=== PATIENT | female | born 1990 | race Caucasian/White ===

== ENCOUNTER 2020-12-17 13:32 | Emergency (ER) | payer BC ==
[~2020-12-17] VITALS: Ht 160 cm; Wt 63.0 kg
[2020-12-17 13:43] VITALS: BP 131/79
[2020-12-17] MEDS ORDERED: NACL 0.9% 1,000 ML IV ONE (14:25)
[2020-12-17 14:27] LABS: BASOPHILS % (AUTO) 0.1 % (0.0-2.0); EOSINOPHILS % (AUTO) 0.1 % (0.0-4.0); HEMATOCRIT 37.8 % (36-48); HEMOGLOBIN 12.8 g/dL (12.0-16.0); LYMPHOCYTES # (AUTO) 1.6 K/uL (2.5-16.5); LYMPHOCYTES % (AUTO) 18.8 % (20.5-51.1); MEAN CORPUSCULAR HEMOGLOBIN 30 pg (27-31); MEAN CORPUSCULAR HGB CONC 34 g/dL (33-37); MEAN CORPUSCULAR VOLUME 88.7 fL (80-94); MONOCYTES # (AUTO) 0.3 K/uL (0.8-1.0); MONOCYTES % (AUTO) 3.8 % (1.7-9.3); NEUTROPHILS # (AUTO) 6.5 K/uL (1.8-7.7); NEUTROPHILS % (AUTO) 77.2 % (42.2-75.2); PLATELET COUNT (AUTO) 249 K/uL (140-450); RED BLOOD CELL COUNT(AUTO) 4.26 MIL/uL (4.20-5.40); RED CELL DISTRIBUTION WIDTH 13.3 % (11.6-13.7); WHITE BLOOD COUNT (AUTO) 8.4 K/uL (4.8-10.8)
[2020-12-17 14:39] LABS: ANION GAP 16.3 (8-16); CREATININE 0.9 mg/dL (0.6-1.3); POTASSIUM 3.3 mmol/L (3.5-5.1)
[2020-12-17] MEDS ORDERED: POTASSIUM CHLORIDE 10 MEQ TABER PO ONE (14:45)
[2020-12-17] MEDS ORDERED: NAPR-54 PO (15:52)
[2020-12-17 16:08] VITALS: BP 128/71
== END 2020-12-17 16:08 | disposition home or self-care (01) ==
LOC: MED 13:32
DX: F41.9 Anxiety disorder, unspecified (principal); E86.0 Dehydration
CPT/HCPCS: 36415; 80048; 81002; 81025; 85025; 93005; 96360; 99284; J7030